=== PATIENT | female | born 1985 | race Caucasian/White ===

== ENCOUNTER 2021-01-04 15:46 | Emergency (ER) | payer MEDICAID, SELFPAY ==
--- NOTE | 2021-01-04 15:48 | XRR_ITS ---
PROCEDURE INFORMATION: Exam: XR Right Finger(s) Exam date and time: 01/04/2021 4:23 PM Age: 35 years old Clinical indication: Injury or trauma; Other: Smashed 5th digits; Blunt trauma (contusions or hematomas); Right; Little finger TECHNIQUE: Imaging protocol: XR Right fingers. Views: Minimum 2 views. COMPARISON: No relevant prior studies available. FINDINGS: Bones/joints: Subtle linear lucencies are noted in the tuft of the 5th distal phalanx. There is no displacement of osseous fragments. No angulation deformity. Joint spaces are normal. Soft tissues: Suspect disruption of the nail bed. Clinical correlation necessary. Other findings: Bandages around distal soft tissues. XR/XR finger RT min 2V 47150 IMPRESSION: Possibly subtle nondisplaced distal tuft fracture. No osseous displacement.
[2021-01-04 16:03] VITALS: BP 120/73; PULSE 93; RESP 18; TEMP 36.8; O2SAT 98; BMI 30.3
[2021-01-04] MEDS: ibuprofen 600 mg Tablet PO (17:01)
--- NOTE | 2021-01-04 17:03 | W.ED.EXTPRO ---
HPI - Extremity Problem General: Chief complaint: Extremity Injury, Upper Stated complaint: Right hand injury Time Seen by Provider: 01/04/21 16:10 Source: patient Mode of arrival: ambulatory Limitations: no limitations History of Present Illness: HPI Narrative: Patient is a 35-year-old female who was pushing a cooler into the back of her car and her right little finger fingernail caught on a suitcase and caused an avulsion of the nail. She is in the bit of pain and is here to be evaluated. They are traveling to [place] to help her mother move. No other injuries. She is here because she is in quite a bit of pain. MD Complaint: extremity pain Associated symptoms: Deny arthralgias, chest pain, fever(s), myalgias, rash or short of breath Review of Systems General: Reports: 10 or more systems reviewed and unremarkable except in HPI and below Const: Denies: fever(s) Card: Denies: chest pain Skin/Breast: Denies: rash Physical Exam Const: COMMON NORMALS: no acute distress, average body habitus, no limitations and healthy appearing Resp: COMMON NORMALS: normal respiratory effort, No retractions and clear to auscultation bilaterally AUSCULTATION: clear to auscultation bilaterally Cardio: COMMON NORMALS: regular rate, regular rhythm, S1 normal heart sound present, S2 normal heart sound present, No gallops present (Cardio) and No murmurs present (Cardio) RATE: regular rate RHYTHM: regular rhythm HEART SOUNDS: S1 normal heart sound present and S2 normal heart sound present GI: COMMON NORMALS: Normal to inspection, nondistended, normoactive bowel sounds present, Soft to palpation and non-tender PALPATION: Yes Soft to palpation Extremity: OTHER: Partial avulsion of right little finger fingernail and it is still attached proximally. No bleeding at this time. No other injuries. Procedures Nerve Block Nerve Block 1: Time out performed: Yes Local Anesthetic: lidocaine 1% Amount of anesthesia used (mL): 3 Side: right Nerve Blocks: digital Procedure Successful: Yes Patient Tolerated Procedure: well Complications: none Orthopedic Splinting/Casting Injury #1: Side: right Upper Extremity Injury Location: finger Upper Extremity Immobilizer: aluminum form splint Course Reevaluation(s): Reevaluation #1: wound and splint care instructions given to her. She voiced understanding and all questions answered. Time: 17:04 Vital Signs: Vital signs: Vital Signs Temperature 98.3 F 01/04/21 16:03 Pulse Rate 75 01/04/21 17:22 Respiratory Rate 16 01/04/21 17:22 Blood Pressure 130/75 01/04/21 17:22 Pulse Oximetry 98 01/04/21 17:22 MDM - Extremity (Nontraumatic) MDM Narrative: Medical decision making narrative: 35-year-old female who sustained a partial fingernail avulsion when her finger hit a suitcase. A digital block was done and the fingernail was reattached using tissue adhesive. Finger was then splinted using an aluminum splint to protect the nail. She is discharged home to follow-up with her primary care provider. Medical Records: Attestation: I reviewed the patient's medical records. Imaging Data^: Xray Ortho: Attestation: I personally reviewed and interpreted this imaging study as follows: Radiologist's impression: [address] [address] XRay Report Signed Patient: Jimmie Duarte #: [id number] : 1985Acct#:[id number] Age/Sex: 35 / FADM Date: 01/04/21 Loc: ERRoom/Bed: Attending Dr: Ordering Provider/Ordering MD: Padmaja Green MD Date of Service: 01/04/21 Procedure(s): XR finger RT min 2V 26300 Accession Number(s): [id number] Report Number: [id number] PROCEDURE INFORMATION: Exam: XR Right Finger(s) Exam date and time: 01/04/2021 4:23 PM Age: 35 years old Clinical indication: Injury or trauma; Other: Smashed 5th digits; Blunt trauma (contusions or hematomas); Right; Little finger TECHNIQUE: Imaging protocol: XR Right fingers. Views: Minimum 2 views. COMPARISON: No relevant prior studies available. FINDINGS: Bones/joints: Subtle linear lucencies are noted in the tuft of the 5th distal phalanx. There is no displacement of osseous fragments. No angulation deformity. Joint spaces are normal. Soft tissues: Suspect disruption of the nail bed. Clinical correlation necessary. Other findings: Bandages around distal soft tissues. XR/XR finger RT min 2V 92919 IMPRESSION: Possibly subtle nondisplaced distal tuft fracture. No osseous displacement. Dictated By:Devan Almonte Signed By:Ruthie Almonte Date/Time:01/04/211658 DD/ 57 Discharge Plan Discharge Patient Disposition: Home Clinical Impression: Avulsed fingernail Qualifiers: Encounter type: initial encounter Qualified Code(s): S61.309A - Unspecified open wound of unspecified finger with damage to nail, initial encounter Condition: Stable Prescriptions: New cephalexin 500 mg capsule 500 mg PO Q6H 7 Days Qty: 28 RF: 0 Discharge Orders: Discharge ED (Routine); Ordered 01/04/21 Ordered By: Pranav Ware Discharge Activity: Limit activity as instructed Activity Restrictions/Additional Instructions: Return for any new or worsening symptoms. Follow-up with your primary care provider within 3 days. Keep the splint on for comfort and to protect the nail. You can discontinue when you feel better. Take Tylenol or ibuprofen as needed for pain. Take the antibiotics as prescribed. Coding Level of Care Code ED Case Making Machine Operator for Tania Bojorquez
[2021-01-04] MEDS: tetanus-dipt-pertussis 0.5 mL SDV IM (17:15)
[2021-01-04 17:22] VITALS: BP 130/75; PULSE 75; RESP 16; O2SAT 98
== END 2021-01-04 17:24 | disposition home or self-care (01) ==
PROVIDERS: Emergency Provider Family Medicine
DX: S61.306A Unspecified open wound of right little finger with damage to nail, initial encounter (principal); W22.8XXA Striking against or struck by other objects, initial encounter; Z23 Encounter for immunization
CPT/HCPCS: 73140; 90471; 90715; 99283